=== PATIENT | female | born 1985 | race Caucasian/White ===

== ENCOUNTER → 2016-08-03 | Day surgery (SDC) | payer OTHER ==
[~2016-08-03] MED LIST: CLINDAMYCIN PHOS 600 MG/4 ML VIAL ONE; LACTATED RINGER'S 1000 ML INJ 1,000 ML ONE; MIDAZOLAM HCL 2 MG/2 ML VIAL ONE; ONDANSETRON HCL 4 MG/2 ML VIAL IV PUSH ONE; OXYTOCIN 10 UNIT/ML AMP ONE; PROPOFOL 200 MG/20 ML AMP IV ONE; SODIUM CHLORIDE 0.9% 100 ML ADDBAG IV ONE; oxyCODONE/ACETAMINOPHEN 5 MG/325 MG TAB ONE
--- NOTE | 2016-08-03 12:28 | MH ---
cc: SULAIMAN WINSLOW DATE OF ADMISSION 08/03/2016 DATE OF 1985 CHIEF COMPLAINT Missed AB at 15 weeks by dates, 13 weeks by size of fetus HISTORY OF PRESENT ILLNESS The patient is a pleasant 30-year-old engaged white female 2, para 1-0-0-1 with LMP unsure, but EDC January 24, 2017 by a 9-week ultrasound performed on June 21. She was seen twice in our office by Dr. Harrison and then seen by me yesterday when she should have been 15 weeks by that 9-week ultrasound. We could not identify heart tones in the office so she underwent an ultrasound which showed no heart tones and a abdomen entirely taken over by fluid. There was no obvious gastroschises or omphalocele, but it was difficult to identify normal abdominal anatomy. The age of the fetus by biometry appeared to be 13 weeks suggesting that the demise had occurred approximately two weeks prior. She had not gotten cell free DNA as she was not at high risk and she was too early for a quad screen. She has begun to have spotting and cramping. She desires definitive treatment as soon as possible as she and her fiance are quite distraught. Her general health is quite good. ALLERGIES SHE HAS AN ALLERGY TO PENICILLIN. PAST DEPLOYMENT SPECIALIST HISTORY She has had a history of an abnormal Pap followed by colposcopy the resolved. She has no other chronic or systemic illnesses. SOCIAL HISTORY She does not smoke, drink or use illicit drugs. 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 LABORATORY DATA Her blood type is A+. Her hemoglobin was 13.5. Her Pap test was normal. She is immune to [place] measles and chickenpox. Her cultures were negative. Drug screen was negative and TSH was normal. MEDICATIONS Her only medication is Zoloft 100 mg for mild depression and anxiety. She did use Diclegis at the beginning of the for nausea and takes vitamins. PHYSICAL EXAM VITAL SIGNS: Her weight is 171. Her blood pressure was 112/64. Her urine showed 2+ leuks. NECK: She had no thyromegaly. LUNGS: Her lungs are clear to auscultation. HEART: Her heart rate and rhythm are regular. ABDOMEN: Her abdomen is benign. She has no CVA tenderness. PELVIC: Her perineum is estrogenized. The cervix is multiparous. There was a little bit of dark brown blood at the cervical os. The uterus was consistent with about 12-13 weeks. EXTREMITIES: Unremarkable. 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 PLAN The plan is to proceed with D&C. The risks, benefits, expectations have been described in detail to her and her partner. They understand there is a risk of scarring, infection, or bleeding if they try to pass the tissue naturally. They understand there is a risk of scarring, infection or bleeding with the D&C and an additional risk of possible perforation of the uterine muscle. Her blood type is O+. We have reassured her there was nothing that they did that could of caused this or could have prevented it and we will continue to follow up with them afterwards for both counseling and family planning. MD LIBORIO Fierro/LELO /11:09 AM /12:10 PM
--- NOTE | 2016-08-04 11:26 | MP ---
cc: SULAIMAN WINSLOW DATE OF SURGERY: 08/03/2016 PREOPERATIVE DIAGNOSIS: Missed AB between 13 and 16 weeks. POSTOPERATIVE DIAGNOSIS: Missed AB between 13 and 16 weeks. PROCEDURE: Dilatation and evaluation / curettage. ANESTHESIA: General. SURGEON: Sulaiman Winslow MD. FINDINGS: The cervix was multiparous. Beginning to gap and did not really require dilation. PROCEDURE: A size 10 curette was placed into the intrauterine cavity to obtain fluid but it was necessary placental forceps to remove majority of the macerated contents of the uterus. This was then augmented with a wide banjo curette and suction curette and over the course of 15-20 minutes the entirety of the intrauterine cavity was effectively cleaned of products of conception. There was some rigors bleeding toward the end which was addressed with Pitocin and IM Methalgen and rigorous bimanual massage. Estimated blood loss was 800 cc. Sponge and needle count correct. She tolerated the procedure well and was taken to the recovery room in stable condition. Her blood type is Rh positive. PATHOLOGY: Pathology is products of conception sent for confirmation. Sulaiman Winslow MD PPC/mh /1:45 PM /11:20 AM
== END | disposition home or self-care (01) ==
LOC: ESDC 11:42
PROVIDERS: ATTEND Obstetrics & Gynecology
DX: O02.1 Missed abortion (principal); Z3A.13 13 weeks gestation of pregnancy
CPT/HCPCS: 01965; 59821; 88305; J2250; J2405; J2590; J3010; J7120

== ENCOUNTER → 2017-04-18 | Outpatient (CLI) | payer OTHER | LOC: HPND 10:44 | PROVIDERS: ATTEND Obstetrics & Gynecology | DX: O36.8990 Maternal care for other specified fetal problems, unspecified trimester, not applicable or unspecified (principal); O35.8XX0 Maternal care for other (suspected) fetal abnormality and damage, not applicable or unspecified | CPT/HCPCS: 76811; 76825; 76827; 93325 ==